=== PATIENT | male | born 1955 | race African-American/Black ===

== ENCOUNTER 2019-04-23 09:59 | Emergency (ER) | payer OTHER ==
[~2019-04-23] VITALS: Ht 190.5 cm; Wt 90.9 kg
[2019-04-23 10:03] VITALS: BP 101/71
== END 2019-04-23 10:32 | disposition home or self-care (01) ==
LOC: EMS 10:02
DX: T16.1XXA Foreign body in right ear, initial encounter (principal); Z86.73 Personal history of transient ischemic attack (TIA), and cerebral infarction without residual deficits
CPT/HCPCS: 69200